=== PATIENT | male | born 1960 | race Caucasian/White ===

== ENCOUNTER 2016-10-31 08:14 | Emergency (ER) | payer OTHER ==
[~2016-10-31] VITALS: Ht 172.7 cm; Wt 75.0 kg
[~2016-10-31 08:14] MED LIST: CYCLOBENZAPR10 MG PO; DIAZEPAM5 MG PO; GENTAMICIN15 ML/BTL EX; HYDROXYZ HCL25 MG PO; NAPROXEN SODIU220 MG OR; NAPROXEN500 MG PO; PATANOL0.1 % OP; TH IBUPROFEN200 M1 OR
[2016-10-31] MEDS ORDERED: NAPROSYN500 MG PO (08:39)
[2016-10-31] MEDS ORDERED: PENICILLN VK500 MG PO (08:39)
[2016-10-31 08:52] VITALS: BP 137/95
== END 2016-10-31 08:52 | disposition home or self-care (01) | DRG 159 ==
LOC: ED 08:14
DX: K02.9 Dental caries, unspecified (principal); F17.210 Nicotine dependence, cigarettes, uncomplicated; K03.81 Cracked tooth

== ENCOUNTER 2019-02-26 08:39 | Emergency (ER) | payer OTHER ==
[~2019-02-26] VITALS: Ht 172.7 cm; Wt 80.0 kg
[~2019-02-26 08:39] MED LIST changes: +NAPROSYN500 MG PO; +PENICILLN VK500 MG PO
[2019-02-26 09:19] LABS: HEMATOCRIT 45.6 % (39.0-50.0); HEMOGLOBIN 15.6 g/dl (14.0-18.0); IMMATURE GRANULOCYTES 0.3 % (0.0-5.0); MEAN CELL VOLUME 95.2 fL CALC (80.0-100.0); MEAN CORPUSCULAR HGB 32.6 pG CALC (26.0-32.0); MEAN CORPUSCULAR HGB CONC 34.2 g/L CALC (32.0-36.0); NEUT# 5.94 thou/uL (1.82-7.42); RED BLOOD COUNT 4.79 mill/uL (4.70-6.10); RED CELL DISTRI WIDTH 12.4 % (11.5-15.5)
[2019-02-26 09:20] LABS: URINE BILIRUBIN - DIPSTICK NEGATIVE (NEGATIVE); URINE BLOOD DIPSTICK NEGATIVE (NEGATIVE); URINE COLOR YELLOW; URINE GLUCOSE - DIPSTICK NEGATIVE (NEGATIVE); URINE KETONE NEGATIVE (NEGATIVE); URINE LEUK ESTERASE NEGATIVE (NEGATIVE); URINE NITRITE - DIPSTICK NEGATIVE (Negative); URINE PROTEIN - DIPSTICK NEGATIVE (NEG-TRACE); URINE SPECIFIC GRAVITY <=1.005; URINE UROBILINOGEN - DIPSTICK 0.2 E.U./dL (0.2)
[2019-02-26 09:24] LABS: BARBITURATES NEGATIVE (NEGATIVE); COCAINE NEGATIVE (NEGATIVE); METHADONE NEGATIVE (NEGATIVE); OXCYCODONE NEGATIVE (NEGATIVE); TETRAHYDROCANNABIONOL NEGATIVE (NEGATIVE); TRICYLIC ANTIDEPRESSANTS NEGATIVE (NEGATIVE)
[2019-02-26 09:31] LABS: ALBUMIN 4.6 g/dL (3.2-5.0); ALKALINE PHOSPHATASE 69 u/l (38-126); ANION GAP 12 (6-22 (CALC)); BILIRUBIN, TOTAL 0.4 mg/dL (0.0-1.4); BUN 9 mg/dL (9-20); BUN/CREATININE RATIO 13 (12-20 (CALC)); CARBON DIOXIDE 25 mmol/l (22-30); CHLORIDE 106 mmol/l (95-108); CREATININE 0.7 mg/dL (0.7-1.3); GFR > 60 ML/MIN (>=60 (CALC)); GFR FOR AFR.AMER. > 60 ML/MIN (>=60 (CALC)); POTASSIUM 4.1 mmol/l (3.5-5.1); SGOT/AST 39 u/l (17-59); SODIUM 140 mmol/l (137-146); TOTAL PROTEIN 8.1 g/dL (6.3-8.2)
[2019-02-26] MEDS ORDERED: ZITHROMAX250 MG PO (11:43)
[2019-02-26] MEDS ORDERED: COMBIVENT RESPIMAT IN (11:43)
[2019-02-26] MEDS ORDERED: MEDDOSEPAK PO (11:43)
[2019-02-26 11:45] VITALS: BP 143/90
== END 2019-02-26 11:51 | disposition home or self-care (01) ==
LOC: ED 08:39
PROVIDERS: Emergency Medicine
DX: J44.1 Chronic obstructive pulmonary disease with (acute) exacerbation (principal); F17.200 Nicotine dependence, unspecified, uncomplicated; Z86.711 Personal history of pulmonary embolism; R06.02 Shortness of breath
CPT/HCPCS: Q9967

== ENCOUNTER 2019-04-10 12:25 | Emergency (ER) | payer OTHER ==
[~2019-04-10] VITALS: Ht 172.7 cm; Wt 77.3 kg
[~2019-04-10 12:25] MED LIST changes: +ASPIRIN ADULT325 MG PO; +COMBIVENT RESPIMAT IN; +MEDDOSEPAK PO; +TRAMADOL HCL50 MG PO; +ZITHROMAX250 MG PO
[2019-04-10] MEDS ORDERED: OFLOXACIN0.3 % OU ×2 (13:19→13:23)
[2019-04-10 13:20] VITALS: BP 142/93
== END 2019-04-10 13:20 | disposition home or self-care (01) ==
LOC: ED 12:25
DX: H10.9 Unspecified conjunctivitis (principal)

== ENCOUNTER 2019-04-13 12:25 | Emergency (ER) | payer OTHER ==
[~2019-04-13] VITALS: Ht 172.7 cm; Wt 79.5 kg
[~2019-04-13 12:25] MED LIST changes: +OFLOXACIN0.3 % OU
[2019-04-13 13:34] LABS: HEMATOCRIT 41.1 % (39.0-50.0); HEMOGLOBIN 13.9 g/dl (14.0-18.0); IMMATURE GRANULOCYTES 0.7 % (0.0-5.0); MEAN CELL VOLUME 95.1 fL CALC (80.0-100.0); MEAN CORPUSCULAR HGB 32.2 pG CALC (26.0-32.0); MEAN CORPUSCULAR HGB CONC 33.8 g/L CALC (32.0-36.0); NEUT# 6.56 thou/uL (1.82-7.42); RED BLOOD COUNT 4.32 mill/uL (4.70-6.10); RED CELL DISTRI WIDTH 12.4 % (11.5-15.5)
[2019-04-13 13:45] LABS: ANION GAP 15 (6-22 (CALC)); BUN 15 mg/dL (9-20); BUN/CREATININE RATIO 18 (12-20 (CALC)); CARBON DIOXIDE 27 mmol/l (22-30); CHLORIDE 101 mmol/l (95-108); CREATININE 0.8 mg/dL (0.7-1.3); GFR > 60 ML/MIN (>=60 (CALC)); GFR FOR AFR.AMER. > 60 ML/MIN (>=60 (CALC)); POTASSIUM 4.2 mmol/l (3.5-5.1); SODIUM 139 mmol/l (137-146)
[2019-04-13] MEDS ORDERED: BACTRIM DS1 TAB PO (15:07)
[2019-04-13] MEDS ORDERED: LEVOFLOXACIN OS (15:07)
[2019-04-13] MEDS ORDERED: AMOX/K CLAV875 M1 PO (15:07)
[2019-04-13 15:20] VITALS: BP 124/77
== END 2019-04-13 15:20 | disposition home or self-care (01) ==
LOC: ED 12:25
PROVIDERS: Family Medicine
DX: H04.302 Unspecified dacryocystitis of left lacrimal passage (principal); H10.9 Unspecified conjunctivitis; J44.9 Chronic obstructive pulmonary disease, unspecified